=== PATIENT | female | born 1945 | race Caucasian/White ===

== ENCOUNTER 2019-10-26 09:44 | Inpatient (IN) | payer MEDICARE ==
[~2019-10-26] VITALS: Ht 167.6 cm; Wt 93.8 kg
--- NOTE | 2019-10-26 09:55 | NUR ---
PT PURNIMA CALVO FROM [place], PT WITH INITIAL C/O BACK PAIN AND WEAKNESS X1 WK. PT WITH TROP 2 MANAGER PART. EMS REPORTS PT WITH 4/10 CP MANAGER PART, PT MEDICATED WITH FENTANYL AND MORPHINE. NITOR PATCH IN PLACE FROM FACILITY. PT MARANDA CP FREE. ERPROVIDER AT BEDSIDE, PT TO CARD MONITOR, CP, CONT PULSE OX.
--- NOTE | 2019-10-26 09:56 | NUR ---
dr doran spoke with dr quick
[2019-10-26] MEDS ORDERED: SODIUM CHLORIDE 0.9% 1,000 ML IV ONE (10:03)
[2019-10-26 10:45] LABS: ALANINE AMINOTRANSFERASE 45 U/L (12-78); ALBUMIN 4.1 g/dL (3.4-5.0); ANION GAP 8 mmol/L (5-15); CALCIUM 9.7 mg/dL (8.5-10.1); CHLORIDE 112 mmol/L (98-107); CHOLESTEROL, TOTAL 260 mg/dL (140-239)
[2019-10-26 10:50] LABS: ALKALINE PHOSPHATASE 48 U/L (45-117); BILIRUBIN,TOTAL 0.6 mg/dL (0.2-1.0); CHOL/HDL RATIO 6.8; CREATININE 1.91 mg/dL (0.55-1.02); HDL CHOL % 15 % (28-40); HDL CHOLESTEROL (DIRECT) 38 mg/dL (40-60); LDL CHOLESTEROL,CALCULATED 194 mg/dL (54-169); LDL/HDL RATIO 5.1 (0.5-3.0); TOTAL PROTEIN 7.5 g/dL (6.4-8.2); TRIGLYCERIDES 139 mg/dL (50-200); VLDL CHOLESTEROL 28 mg/dL (0-25)
--- NOTE | 2019-10-26 10:51 | NUR ---
LAB CALLED CRITICAL TROP OF 4.750. DR CEBALLOS WAS MADE AWARE.
--- NOTE | 2019-10-26 10:59 | NUR ---
BUYER PLANNER IN ROOM AND AT THIS TIME WANTS TO HOLD OFF ON CTA DUE TO RISK FOR KIDNEY INJURY DUE TO CONTRAST. DR IRWIN WAS INFORMED BY CARDIOLOGY. PT IN BED AT THIS TIME. CURRENTLY PAIN FREE.
[2019-10-26] MEDS ORDERED: GLUCAGON 1 MG IM PRN (11:30)
[2019-10-26] MEDS ORDERED: MORPHINE SULFATE 4 MG/ML, 1ML IVPush PRN (11:30)
[2019-10-26] MEDS ORDERED: POLYETHYLENE GLYCOL 17 GM PACKET PO PRN (11:30)
[2019-10-26] MEDS ORDERED: LABETALOL 5MG/ML, 20ML IVPush PRN (11:30)
[2019-10-26] MEDS ORDERED: DOCUSATE 100 MG CAPSULE PO PRN (11:30)
[2019-10-26] MEDS ORDERED: DEXTROSE 50%, 50ML SYRINGE IVPush PRN (11:30)
[2019-10-26] MEDS ORDERED: BISACODYL 10 MG SUPP PR PRN (11:30)
[2019-10-26] MEDS ORDERED: ONDANSETRON 2MG/ML, 2ML IVPush PRN (11:30)
[2019-10-26] MEDS ORDERED: OXYcodone IR 5MG TABLET PO PRN (11:30)
[2019-10-26] MEDS ORDERED: DEXTROSE 4 GM TAB.CHEW PO PRN (11:30)
[2019-10-26] MEDS ORDERED: PROMETHAZINE 25 MG/ML, 1ML IM PRN (11:30)
[2019-10-26] MEDS ORDERED: SODIUM CHLORIDE FLUSH 10ML SYR IVF PRN (12:00)
[2019-10-26] MEDS: CARVEDILOL 6.25 MG TABLET PO SCH ×2 (12:43→21:05)
[2019-10-26 12:51] LABS: MICROSCOPIC AUTO
[2019-10-26 12:53] LABS: CULTURE INDICATED? YES
[2019-10-26 12:57] VITALS: BP 130/80
[2019-10-26] MEDS ORDERED: VERAPAMIL 2.5 MG/ML, 2ML ONE (13:26)
[2019-10-26] MEDS ORDERED: BIVALIRUDIN 250 MG ONE (13:26)
[2019-10-26] MEDS ORDERED: MIDAZOLAM 1 MG/ML, 5ML ONE (13:26)
[2019-10-26] MEDS ORDERED: LIDOCAINE-MPF 1%, 5ML ONE (13:26)
[2019-10-26] MEDS ORDERED: FENTANYL PF 250 MCG/5ML ONE (13:26)
[2019-10-26] MEDS ORDERED: HEPARIN 1,000 UNITS/ML, 10ML ONE (13:27)
[2019-10-26] MEDS ORDERED: TICAGRELOR 90 MG TABLET ONE (14:10)
[2019-10-26] MEDS: SODIUM CHLORIDE 0.9% 1,000 ML IV SCH ×2 (15:14→21:13)
[2019-10-26] MEDS: INSULIN LISPRO 100 UNITS/ML, PEN SQ-INSULIN SCH ×2 (16:00→21:05)
[2019-10-26] MEDS ORDERED: SITA50TA PO (17:20)
[2019-10-26] MEDS ORDERED: PHEN-583 PO (17:20)
[2019-10-26] MEDS ORDERED: LISI-170 PO (17:20)
[2019-10-26] MEDS ORDERED: METF500T17 PO (17:20)
[2019-10-26] MEDS: ATORVASTATIN 40 MG TABLET PO SCH (21:04)
[2019-10-26] MEDS: TICAGRELOR 90 MG TABLET PO SCH (21:05)
[2019-10-26] MEDS: SODIUM CHLORIDE FLUSH 10ML SYR IVF SCH (21:05)
[2019-10-26 21:06] VITALS: BP 111/73
[2019-10-27 02:49] VITALS: BP 148/73
[2019-10-27 04:57] LABS: BASOPHILS # (AUTO) 0.05 x10^3/uL (0-0.1); BASOPHILS % (AUTO) 1 % (0-1); EOSINOPHILS # (AUTO) 0.08 x10^3/uL (0-0.4); EOSINOPHILS % (AUTO) 1 % (1-7); LYMPHOCYTES % (AUTO) 22 % (22-44); MD NO; MEAN CORPUSCULAR HEMOGLOBIN 29.9 pg (27.0-34.8); MEAN CORPUSCULAR HGB CONC 33.1 g/dL (32.4-35.8); MEAN CORPUSCULAR VOLUME 90.2 fL (80-100); MEAN PLATELET VOLUME 7.7 fL (7.4-10.4); MONOCYTES # (AUTO) 0.58 x10^3/uL (0.2-0.8); MONOCYTES % (AUTO) 10 % (2-9); NEUTROPHILS # (AUTO) 3.79 x10^3/uL (1.8-6.8); NEUTROPHILS % (AUTO) 65 % (42-75); PLATELET COUNT 310 x10^3/uL (130-400); RED BLOOD COUNT 3.79 x10^6/uL (3.82-5.3); RED CELL DISTRIBUTION WIDTH 13.9 % (9.6-15.2)
[2019-10-27 05:04] LABS: ALBUMIN 3.4 g/dL (3.4-5.0); ANION GAP 4 mmol/L (5-15); CALCIUM 9.7 mg/dL (8.5-10.1); CHLORIDE 115 mmol/L (98-107)
[2019-10-27 05:12] LABS: ALANINE AMINOTRANSFERASE 40 U/L (12-78); ALKALINE PHOSPHATASE 41 U/L (45-117); BILIRUBIN,TOTAL 0.6 mg/dL (0.2-1.0); CREATININE 1.23 mg/dL (0.55-1.02); TOTAL PROTEIN 6.5 g/dL (6.4-8.2)
[2019-10-27] MEDS: ASPIRIN 81 MG TABLET EC PO SCH ×2 (05:44→05:54)
[2019-10-27] MEDS: CARVEDILOL 6.25 MG TABLET PO SCH ×2 (05:54→17:34)
[2019-10-27 06:45] VITALS: BP 111/70
[2019-10-27] MEDS: INSULIN LISPRO 100 UNITS/ML, PEN SQ-INSULIN SCH ×4 (08:23→20:34)
[2019-10-27] MEDS: SODIUM CHLORIDE FLUSH 10ML SYR IVF SCH ×2 (08:53→20:18)
[2019-10-27] MEDS: TICAGRELOR 90 MG TABLET PO SCH ×2 (08:53→20:16)
[2019-10-27] MEDS: LISINOPRIL 10 MG TABLET PO SCH (10:45)
[2019-10-27 15:38] VITALS: BP 107/56
[2019-10-27] MEDS: ATORVASTATIN 40 MG TABLET PO SCH (20:16)
[2019-10-27 20:43] VITALS: BP 130/84
[2019-10-28 03:55] VITALS: BP 107/74
[2019-10-28] MEDS: CARVEDILOL 6.25 MG TABLET PO SCH (05:18)
[2019-10-28] MEDS: ASPIRIN 81 MG TABLET EC PO SCH ×2 (05:19→08:10)
[2019-10-28 05:25] LABS: ANION GAP 8 mmol/L (5-15); CALCIUM 9.9 mg/dL (8.5-10.1); CHLORIDE 112 mmol/L (98-107); CREATININE 1.26 mg/dL (0.55-1.02)
[2019-10-28 08:00] VITALS: BP 102/67
[2019-10-28] MEDS: LISINOPRIL 10 MG TABLET PO SCH (08:10)
[2019-10-28] MEDS: INSULIN LISPRO 100 UNITS/ML, PEN SQ-INSULIN SCH ×2 (08:11→10:24)
[2019-10-28] MEDS: SODIUM CHLORIDE FLUSH 10ML SYR IVF SCH (08:11)
[2019-10-28] MEDS: TICAGRELOR 90 MG TABLET PO SCH (08:11)
[2019-10-28] MEDS ORDERED: ASPI81TA45 PO (12:31)
[2019-10-28] MEDS ORDERED: TICA90TA PO (12:31)
[2019-10-28] MEDS ORDERED: CARV6.2512 PO (12:31)
[2019-10-28] MEDS ORDERED: ATOR40TA78 PO (12:31)
[2019-10-28] MEDS ORDERED: LISI-167 PO (12:31)
== END 2019-10-28 14:21 | disposition home or self-care (01) | DRG 246 ==
LOC: SUATTDRO 10:58 → ED 11:03 → EDIP 11:35 → 5SO 12:17 → DCLOUNGE 10-28 13:47
PROVIDERS: ADMIT Internal Medicine; ATTEND Hospitalist
PROC: 027034Z Dilation of Coronary Artery, One Artery with Drug-eluting Intraluminal Device, Percutaneous Approach (ICD-10-PCS; principal; 2019-10-26)
PROC: 4A023N7 Measurement of Cardiac Sampling and Pressure, Left Heart, Percutaneous Approach (ICD-10-PCS; 2019-10-26)
PROC: B211YZZ Fluoroscopy of Multiple Coronary Arteries using Other Contrast (ICD-10-PCS; 2019-10-26)
DX: I21.4 Non-ST elevation (NSTEMI) myocardial infarction (principal); I50.31 Acute diastolic (congestive) heart failure; N17.0 Acute kidney failure with tubular necrosis; E87.2 Acidosis; N39.0 Urinary tract infection, site not specified; E11.21 Type 2 diabetes mellitus with diabetic nephropathy; E11.65 Type 2 diabetes mellitus with hyperglycemia; E66.9 Obesity, unspecified; E78.5 Hyperlipidemia, unspecified; E83.42 Hypomagnesemia; D64.9 Anemia, unspecified; F17.200 Nicotine dependence, unspecified, uncomplicated; R00.0 Tachycardia, unspecified; I11.0 Hypertensive heart disease with heart failure; I20.9 Angina pectoris, unspecified; K76.0 Fatty (change of) liver, not elsewhere classified; N20.0 Calculus of kidney; Z82.49 Family history of ischemic heart disease and other diseases of the circulatory system; Z87.442 Personal history of urinary calculi; Z90.710 Acquired absence of both cervix and uterus; Z95.5 Presence of coronary angioplasty implant and graft; Z83.3 Family history of diabetes mellitus; Z68.33 Body mass index [BMI] 33.0-33.9, adult
CPT/HCPCS: 36415; 71045; 76700; 80048; 80053; 80061; 81001; 82150; 82962; 83036; 83690; 83735; 83880; 84100; 84443; 84484; 85025; 87077; 87086; 87186; 93005; 93306; 93458; 99156; 99157; C1769; C1894; C9600; G0378; J0583; J1644; J2250; J3010; C1725; C1874; C1887; J1815; J7030; Q9967

== ENCOUNTER → 2020-09-03 | Outpatient (CLI) | payer MEDICARE ==
[~2020-09-03] MED LIST: ASPI81TA45 PO; ATOR40TA78 PO; CARV6.2512 PO; LISI-167 PO; LISI-170 PO; METF500T17 PO; PHEN-583 PO; SITA50TA PO; TICA90TA PO
== END | disposition home or self-care (01) ==
LOC: CFH 15:07
PROVIDERS: ATTEND Physician Assistant Medical
DX: I05.8 Other rheumatic mitral valve diseases (principal); I10 Essential (primary) hypertension; I25.10 Atherosclerotic heart disease of native coronary artery without angina pectoris
CPT/HCPCS: 93306